=== PATIENT | male | born 1975 | race Caucasian/White ===

== ENCOUNTER 2020-05-01 06:34 | Inpatient (IN) ==
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
[~2020-05-01 06:34] MED LIST: CEFAZOLIN 2000MG 2,000 MG/15 ML SYR IV SCH; LACTATED RINGER'S 1,000 ML IV SCH
[2020-05-01] MEDS ORDERED: ATROPINE SULFATE 0.1 MG/ML 10ML SYR IV PRN (10:33)
[2020-05-01] MEDS ORDERED: HYDROmorphone INJ 1 MG/ML SYRINGE IV PRN ×2 (10:33→22:59)
[2020-05-01] MEDS ORDERED: ePHEDrine sulfate 50 MG/ML AMP IV PRN (10:33)
[2020-05-01] MEDS ORDERED: fentaNYL citrate 100 MCG/2 ML VIAL IV PRN (10:33)
[2020-05-01] MEDS ORDERED: ONDANSETRON INJ 2 MG/ML 2 ML VIAL IV PRN (10:33)
[2020-05-01] MEDS ORDERED: BUPIVACAINE/EPINEPHRINE 0.25% 1:200,000 30 ML VIAL ONE (10:36)
--- NOTE | 2020-05-01 10:36 | History & Physical Bridge Note ---
Date of Service May 01, 2020 History & Physical Bridge Note I have examined the patient, reviewed the History & Physical and in the interval since the performance of the History & Physical I have noted the following changes of clinical significance: no changes noted
[2020-05-01] MEDS ORDERED: ONDANSETRON INJ 2 MG/ML 2 ML VIAL ONE (10:42)
[2020-05-01] MEDS ORDERED: DEXAMETHASONE SOD INJ 4 MG/ML VIAL ONE (10:42)
[2020-05-01] MEDS ORDERED: SUCCINYLCHOLINE CHLORIDE 20 MG/ML 10 ML VIAL IV ONE (10:42)
[2020-05-01] MEDS ORDERED: PROPOFOL IV EMULSION 10 MG/ML 20 ML VIAL IV ONE (10:42)
[2020-05-01] MEDS ORDERED: LIDOCAINE HCL 2% 2 ML VIAL/AMP(20MG/ML) INFIL ONE (10:42)
[2020-05-01] MEDS ORDERED: GLYCOPYRROLATE 0.2 MG/ML VIAL ONE (10:42)
[2020-05-01] MEDS ORDERED: ePHEDrine sulfate 50 MG/ML AMP ONE (10:42)
[2020-05-01] MEDS ORDERED: NEOSTIGMINE METHYLSULFATE 5 MG/5 ML SYR ONE (10:42)
[2020-05-01] MEDS ORDERED: MIDAZOLAM HCL 1 MG/ML 2ML VIAL ONE (10:42)
[2020-05-01] MEDS ORDERED: PHENYLEPHRINE HCL 10 MG/ML VIAL ONE (10:42)
[2020-05-01] MEDS ORDERED: fentaNYL citrate 100 MCG/2 ML VIAL ONE (10:43)
[2020-05-01] MEDS ORDERED: SCOPOLAMINE 1.5 MG TDSY TD ONE (10:52)
[2020-05-01] MEDS ORDERED: FAMOTIDINE 20 MG in SYRINGE 3 ML IV ONE (11:30)
[2020-05-01] MEDS ORDERED: SODIUM CHLORIDE 0.9% INJ 10 ML VIAL ONE (11:34)
[2020-05-01] MEDS ORDERED: HYDROmorphone INJ 2 MG/ML SYR/VIAL ONE (11:34)
[2020-05-01] MEDS ORDERED: METOCLOPRAMIDE HCL INJ 5 MG/ML 2 ML VIAL ONE (11:39)
[2020-05-01] MEDS ORDERED: DiphenhydrAMINE HCL 50 MG/ML VIAL ONE (11:58)
[2020-05-01] MEDS ORDERED: ROCURONIUM BROMIDE 10 MG/ML 5 ML VIAL IV ONE ×6 (12:20)
[2020-05-01] MEDS ORDERED: LABETALOL HCL IV 5 MG/ML 20ML IV ONE (12:38)
[2020-05-01] MEDS ORDERED: SUGAMMADEX SODIUM 200 MG/2 ML VIAL IV ONE (14:21)
--- NOTE | 2020-05-01 14:43 | Operative Report ---
PG Post Operative Report Pre & Post Diagnosis Operation Date: 05/01/20 09:50 Pre-Op Diagnosis: Diverticulitis, Umbilical Hernia Post-Op Diagnosis: Diverticulitis, Umbilical Hernia; extensive adhesions; I identified the patient and participated in the time-out.: Yes Procedure Operation Date: 05/01/20 09:50 Actual Procedures p Open Sigmoid Colon Resection;(Not Applicable) - Matt Leigh DO s Open Umbilical Hernia Repair(Not Applicable) - Matt Leigh DO Surgeon Matt Leigh DO Manager Spring jean paul Abrams Estimated Blood Loss 20 Findings Consistent with Post-Op Diagnosis Specimens sigmoid colon Description of Procedure After informed consent was obtained the patient was taken to the operating room and placed in supine position. After successful intubation a Man catheter was placed. The patient was then placed in a low lithotomy position in yellowfin stirrups. both arms were tucked. The entire abdomen groin perineum and rectum were sterilely prepped and draped in usual fashion. I began by making an infraumbilical incision with 11 blade scalpel and carried this down through the soft tissue using cautery. The anterior rectus fascia was opened using cautery and two #0 Vicryl stay sutures were placed. Peritoneum was entered using blunt finger penetration and a finger sweep was performed. A 12 mm Mistry trocar was placed and the abdomen was insufflated to 20 mmHg. The laparoscope was inserted. We immediately encountered a fair amount of adhesions. I was able to place a right lower quadrant 12 mm port and a right mid abdominal 5 mm port. The first hour of the procedure was spent tediously taking down adhesions using blunt dissection and small amounts of harmonic scalpel. Eventually we also placed a left lower quadrant 5 mm trocar. A portion of the sigmoid colon was very tightly adhered to the anterior abdominal wall at his midline incision. 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 Despite being able to get this down laparoscopically his left retroperitoneum was very adhesed as well and I did not feel it would be safe to proceed. We therefore converted this to an open procedure. We removed all the trochars and desufflated the abdomen. I opened his previous midline incision from just above his umbilicus down to his pubic symphysis. Cautery was used to open the incision completely. A Bookwalter retractor was used throughout the rest of the case to help with exposure. Again the thickened inflamed area of colon was quite obvious. Much of his abdomen was very much adhesed because of his previous surgeries. I was able to free up the white line of Toldt using finger fractionation and small amount of harmonic scalpel. I was able to find good soft viable bowel distal to this area and created a small window in the mesentery. We transected this using a RADHA purple cartridge stapler. In similar fashion we found some good healthy bowel proximal to the area and transected it with a purple RADHA as well. A LigaSure device was used to take down the mesentery and the specimen was passed off. We were near the pelvic brim however there was also a lot of scarring of his bladder flap and I felt the risk benefit would not warrant trying to free this up to get low on the rectum. Therefore we did a handsewn end-to-end anastomosis. We used 3-0 silk in simple interrupted fashion as a posterior serosal layer. Next we removed both staple lines using a Metzenbaum scissor and used 3-0 Monocryl to do a running serosal mucosal layer. We did the anterior portion using Dorene stitches. Once we had the mucosal serosal layer completely closed we then used 3-0 silk in simple interrupted fashion to do an anterior serosal layer. The anastomosis appeared to be intact and patent. There did not appear to be excess tension. It was not ischemic. We did close the mesenteric defect using 2-0 Vicryl in simple erupted fashion as well. There was adequate hemostasis. We thoroughly irrigated the entire abdomen. We were able to free up enough omentum and laid this over the anastomosis itself. A 10 flat Octavio-Griffith drain was also brought in through 1 of the trocar sites and placed into the lower half of the abdomen. It was secured to the skin using 2-0 silk. We then freed up the umbilical hernia and excised the sac. Next we closed the fascia using 0-looped PDS starting at either pole and running them and securing them in the midline. We incorporated the umbilical hernia defect with this. I then reattached the umbilicus using 0 Vicryl to the fascia. Soft tissue irrigation was performed and the skin was closed using skin taylor. The other incisions were closed using skin taylor as well. A silver dressing gauze and tape were applied. The patient was awakened, extubated and transferred to recovery in stable condition. My physician retail sales assistant was present through the entire case. He was instrumental in helping with assistance from running the camera to exposing anatomy as well as assisting with the anastomosis wound closure and dressing placement. I attest to the content of the Intraoperative Record and any orders documented therein. Any exceptions are noted below.
--- NOTE | 2020-05-01 15:04 | Anesthesiology Progress Note ---
Date of Service May 01, 2020 Anesthesia Post Procedure Vital Signs Vital Signs: Temp Pulse Resp BP Pulse Ox 05/01/20 07:00 36.7 C 78 18 120/86 99 Transfer of Care Handoff Completed per policy Notes Mental Status: alert / awake / arousable and participated in evaluation Patient Amnestic to Procedure: Yes Nausea / Vomiting: adequately controlled Pain: adequately controlled Airway Patency, RR, SpO2: stable & adequate BP & HR: stable & adequate Hydration State: stable & adequate Anesthetic Complications: no major complications apparent and Pt Satisfied with anesthetic care
[2020-05-01] MEDS ORDERED: NALOXONE HCL 0.4 MG/1 ML VIAL/CARP IV PRN (16:34)
[2020-05-01] MEDS ORDERED: ACETAMINOPHEN 1,000 MG/100 ML VIAL IV PRN (16:34)
[2020-05-01] MEDS ORDERED: HYDROmorphone PCA 30 MG/30 ML IV PRN (16:34)
[2020-05-01] MEDS: LACTATED RINGER'S 1,000 ML IV SCH ×2 (16:38→23:04)
[2020-05-01] MEDS ORDERED: ALBUTEROL HFA 8 GM INHALER INH PRN (16:49)
[2020-05-01] MEDS: KETOROLAC 30 MG/ML VIAL IV PRN (19:01)
[2020-05-01] MEDS: CEFAZOLIN 2000MG 2,000 MG/15 ML SYR IV SCH (19:01)
[2020-05-02] MEDS: MONTELUKAST SODIUM 10 MG TABLET PO SCH ×2 (01:17→21:15)
[2020-05-02] MEDS: HYDROmorphone INJ 0.5 MG/0.5 ML SYR IV PRN ×2 (01:26→06:29)
[2020-05-02] MEDS: CEFAZOLIN 2000MG 2,000 MG/15 ML SYR IV SCH ×2 (02:48→11:34)
[2020-05-02 05:41] LABS: Hematocrit (blood only) 39.2 % (42-52); Immature Granulocytes # (auto) 0.02 K/uL (0.00-0.02); Immature Granulocytes % (auto) 0.2 %; Lymphocytes # (auto) 1.14 K/uL (1.2-3.4); Lymphocytes % (auto) 11.3 %; Mean Corpuscular Hgb Conc 33.2 g/dL (32-36); Mean Corpuscular Volume 90.3 fL (80-100); Mean Platelet Volume 8.7 fL (7.4-10.4); Monocytes # (auto) 0.87 K/uL (0.11-0.59); Monocytes % (auto) 8.6 %; Neutrophils # (auto) 8.08 K/uL (1.4-6.5); Neutrophils % (auto) 79.9 %; Platelet Count 271 K/uL (130-400); RDW Coefficient of Variation 13.3 % (11.5-14.5); RDW Standard Deviation 44.3 fL (36.4-46.3); Red Blood Count 4.34 M/uL (4.7-6.1); White Blood Count 10.11 K/uL (4.8-10.8)
[2020-05-02 06:05] LABS: BUN Creatinine Ratio 20.7 (10-20); Calcium 8.1 mg/dl (8.5-10.1); Creatinine Clr Calc Pharmacy 118.2 ml/min; Est GFR (African American) 124.8; Est GFR (Non-African American) 107.7
[2020-05-02] MEDS: LACTATED RINGER'S 1,000 ML IV SCH (06:31)
[2020-05-02] MEDS: SODIUM CHLORIDE 0.9% 1000ML 1,000 ML IV SCH ×2 (06:37→17:37)
--- NOTE | 2020-05-02 07:49 | Surgery Progress Note ---
Date of Service May 02, 2020 Assessment & Plan (1) Diverticular disease of colon: pod 1 doing quite well so far. will d/c swan at pt request OOB today pain control [facility] Admission and Anticipated Discharge Date Admission Date: May 01, 2020 Subjective pt seen. looks surprisingly well for the scope of his surgery. pain controlled with IV dilaudid. Physical Exam Physical Exam: alert. nad abd: soft. dressings c/d/I BETH small amount of serous. Results & Data ([facility]) Vital Signs (Past 12 Hours) Vital Signs Temp Pulse Resp BP BP Pulse Ox 05/02/20 04:12 36.8 C 94 H 16 102/63 94 05/01/20 22:47 36.9 C 112 H 16 103/68 96 05/01/20 20:31 36.4 C L 115 H 17 114/71 94 PG Care Time/CCT Total # of Minutes Spent Total Time Spent with Patient: Total time spent is greater than 50% in coordination of care (as documented) at patient's floor/unit and/or counseling patient: Coding Level of Care Code None Diagnoses Diverticular disease of colon K57.30
[2020-05-02] MEDS: D5W AND 1/2NSS + 20MEQ KCL 20 MEQ/1,000 ML BAG IV SCH ×2 (08:55→17:37)
[2020-05-02] MEDS: ENOXAPARIN INJ 40 MG/0.4 ML SYR SQ SCH ×2 (09:01→21:15)
[2020-05-02] MEDS ORDERED: NURSING DECISION MEDICATION ONE (17:23)
[2020-05-02] MEDS ORDERED: COUGH DROP (SUGAR FREE) LOZ 24 LOZ/1 BOX BUCCAL PRN (17:28)
[2020-05-03] MEDS: D5W AND 1/2NSS + 20MEQ KCL 20 MEQ/1,000 ML BAG IV SCH ×4 (00:06→20:46)
[2020-05-03] MEDS: ONDANSETRON INJ 2 MG/ML 2 ML VIAL IV PRN ×2 (04:21→10:30)
[2020-05-03] MEDS: PANTOprazole 40 MG in SYRINGE 0 ML IV SCH (04:42)
[2020-05-03 06:27] LABS: Basophils # (auto) 0.03 K/uL (0-0.2); Basophils % (auto) 0.4 %; Eosinophils # (auto) 0.13 K/uL (0-0.5); Eosinophils % (auto) 1.5 %; Hematocrit (blood only) 42.1 % (42-52); Hemoglobin 13.6 g/dL (14.0-18.0); Immature Granulocytes # (auto) 0.03 K/uL (0.00-0.02); Immature Granulocytes % (auto) 0.4 %; Lymphocytes # (auto) 1.48 K/uL (1.2-3.4); Lymphocytes % (auto) 17.6 %; Mean Corpuscular Hemoglobin 29.6 pg (25-34); Mean Corpuscular Hgb Conc 32.3 g/dL (32-36); Mean Corpuscular Volume 91.5 fL (80-100); Mean Platelet Volume 8.7 fL (7.4-10.4); Monocytes # (auto) 1.11 K/uL (0.11-0.59); Monocytes % (auto) 13.2 %; Neutrophils # (auto) 5.62 K/uL (1.4-6.5); Neutrophils % (auto) 66.9 %; Platelet Count 251 K/uL (130-400); RDW Coefficient of Variation 13.6 % (11.5-14.5); RDW Standard Deviation 45.9 fL (36.4-46.3)
[2020-05-03 06:45] LABS: BUN Creatinine Ratio 19.3 (10-20); Calcium 8.3 mg/dl (8.5-10.1); Creatinine Clr Calc Pharmacy 143.7 ml/min; Est GFR (African American) 135.2; Est GFR (Non-African American) 116.7; Potassium 3.8 mmol/L (3.5-5.1)
[2020-05-03] MEDS: ENOXAPARIN INJ 40 MG/0.4 ML SYR SQ SCH ×2 (08:12→20:57)
--- NOTE | 2020-05-03 10:28 | Surgery Progress Note ---
Date of Service May 03, 2020 Assessment & Plan (1) Diverticular disease of colon: Postoperative day #2 status post laparoscopic/open sigmoid colectomy Peristalsis is slowly returning audibly We will start sips of clear liquids We will also add Maalox for his indigestion and continue Protonix Encouraged ambulation White blood cell count is normal and H&H is stable Admission and Anticipated Discharge Date Admission Date: May 01, 2020 Subjective Postoperative day #2 status post laparoscopic/open sigmoid colectomy Sitting in chair appears comfortable Has not passed flatus or had bowel movement as yet Complaining of heartburn, Protonix was started but continues to have heartburn Had some mild nausea this morning but thinks it was related to the reflux and heartburn No [facility] and 100 cc out over the last shift all serosanguineous Physical Exam Gastrointestinal (Abdomen): Inspection/Auscultation: + abdomen distended (Mild) and + abdominal surgical incision (Clean, dry and intact) Percussion/Palpation: abdomen soft Bowel sounds are present and of normal pitch Results & Data ([facility]) Vital Signs (Past 12 Hours) Vital Signs Temp Pulse Resp BP Pulse Ox 05/03/20 07:16 36.8 C 95 H 18 117/74 93 05/03/20 03:25 36.3 C L 82 14 109/76 92 05/02/20 23:33 36.6 C 100 H 18 138/92 96 Laboratory Results 05/03/20 05/03/20 Range/Units 06:02 06:02 WBC 8.40 (4.8-10.8) K/uL RBC 4.60 L (4.7-6.1) M/uL Hgb 13.6 L (14.0-18.0) g/dL Hct 42.1 (42-52) % MCV 91.5 (80-100) fL MCH 29.6 (25-34) pg MCHC 32.3 (32-36) g/dL RDW Std Deviation 45.9 (36.4-46.3) fL RDW Coeff of Maya 13.6 (11.5-14.5) % Plt Count 251 (130-400) K/uL MPV 8.7 (7.4-10.4) fL Immature Gran % (Auto) 0.4 % Neut % (Auto) 66.9 % Lymph % (Auto) 17.6 % Garrett % (Auto) 13.2 % Eos % (Auto) 1.5 % Baso % (Auto) 0.4 % Neut # (Auto) 5.62 (1.4-6.5) K/uL Lymph # (Auto) 1.48 (1.2-3.4) K/uL Garrett # (Auto) 1.11 H (0.11-0.59) K/uL Eos # (Auto) 0.13 (0-0.5) K/uL Baso # (Auto) 0.03 (0-0.2) K/uL Immature Gran # (Auto) 0.03 H (0.00-0.02) K/uL Sodium 136 (136-145) mmol/L Potassium 3.8 (3.5-5.1) mmol/L Chloride 104 (98-107) mmol/L Carbon Dioxide 26 (21-32) mmol/L Anion Gap 6.0 (3-11) BUN 13 (7-18) mg/dl Creatinine 0.65 (0.6-1.4) mg/dl Est Cr Clr Drug Dosing 143.7 ml/min Est GFR ( Amer) 135.2 Est GFR (Non-Af Amer) 116.7 BUN/Creatinine Ratio 19.3 (10-20) Glucose 135 H (70-99) mg/dl Calcium 8.3 L (8.5-10.1) mg/dl
[2020-05-03] MEDS ORDERED: ALUMINUM/MAGNESIUM SUSP 30 ML UDC PO PRN (15:33)
[2020-05-03] MEDS: KETOROLAC 30 MG/ML VIAL IV PRN (19:32)
[2020-05-03] MEDS ORDERED: OXYCODONE/ACETAMINOPHEN 5mg/325mg TAB PO STA (20:06)
[2020-05-03] MEDS: MONTELUKAST SODIUM 10 MG TABLET PO SCH (20:58)
[2020-05-04] MEDS: D5W AND 1/2NSS + 20MEQ KCL 20 MEQ/1,000 ML BAG IV SCH ×3 (03:31→16:42)
[2020-05-04] MEDS: KETOROLAC 30 MG/ML VIAL IV PRN ×3 (05:22→21:02)
[2020-05-04 06:29] LABS: Basophils # (auto) 0.01 K/uL (0-0.2); Basophils % (auto) 0.1 %; Eosinophils # (auto) 0.24 K/uL (0-0.5); Eosinophils % (auto) 3.3 %; Hematocrit (blood only) 41.9 % (42-52); Hemoglobin 14.3 g/dL (14.0-18.0); Immature Granulocytes # (auto) 0.02 K/uL (0.00-0.02); Immature Granulocytes % (auto) 0.3 %; Lymphocytes # (auto) 1.66 K/uL (1.2-3.4); Lymphocytes % (auto) 22.7 %; Mean Corpuscular Hemoglobin 31.2 pg (25-34); Mean Corpuscular Hgb Conc 34.1 g/dL (32-36); Mean Corpuscular Volume 91.5 fL (80-100); Mean Platelet Volume 8.5 fL (7.4-10.4); Monocytes # (auto) 0.98 K/uL (0.11-0.59); Monocytes % (auto) 13.4 %; Neutrophils % (auto) 60.2 %; Platelet Count 224 K/uL (130-400); RDW Coefficient of Variation 13.5 % (11.5-14.5); RDW Standard Deviation 44.8 fL (36.4-46.3); Red Blood Count 4.58 M/uL (4.7-6.1); White Blood Count 7.31 K/uL (4.8-10.8)
[2020-05-04 06:58] LABS: BUN Creatinine Ratio 12.3 (10-20); Calcium 8.7 mg/dl (8.5-10.1); Creatinine Clr Calc Pharmacy 137.4 ml/min; Est GFR (African American) 132.7; Est GFR (Non-African American) 114.5; Potassium 4.3 mmol/L (3.5-5.1)
[2020-05-04] MEDS: ENOXAPARIN INJ 40 MG/0.4 ML SYR SQ SCH ×2 (07:14→19:51)
[2020-05-04] MEDS: PANTOprazole 40 MG in SYRINGE 0 ML IV SCH (07:15)
--- NOTE | 2020-05-04 10:03 | Surgery Progress Note ---
Date of Service May 04, 2020 Assessment & Plan (1) Diverticular disease of colon: Postoperative day #3 status post laparoscopic/open sigmoid colectomy Peristalsis has returned Tolerated clear liquid diet Advance to full liquid diet Encourage ambulation Continue analgesia Indigestion improved Admission and Anticipated Discharge Date Admission Date: May 01, 2020 Subjective Postoperative day #3 status post laparoscopic-assisted/open sigmoid colectomy Passing flatus and had bowel movements this morning Denies nausea and vomiting No indigestion or heartburn this morning Tolerated clear liquid diet Ambulating Having less pain BETH had 290 cc out yesterday and 150 cc out to this point today, all serosanguineous Physical Exam Gastrointestinal (Abdomen): Inspection/Auscultation: normal bowel sounds and + abdominal surgical incision (Clean, dry and intact); abdomen not distended Percussion/Palpation: + abdomen tender (Incisional only) and abdomen soft Results & Data ([facility]) Vital Signs (Past 12 Hours) Vital Signs Temp Pulse Resp BP BP Pulse Ox 05/04/20 07:08 36.6 C 101 H 18 110/76 96 05/04/20 04:00 36.4 C L 74 18 125/76 96 05/04/20 00:07 36.8 C 88 16 117/75 95
[2020-05-04] MEDS: SODIUM CHLORIDE 0.9% 1000ML 1,000 ML IV SCH ×2 (16:54→16:55)
[2020-05-04] MEDS: MONTELUKAST SODIUM 10 MG TABLET PO SCH (19:51)
[2020-05-05] MEDS: D5W AND 1/2NSS + 20MEQ KCL 20 MEQ/1,000 ML BAG IV SCH ×2 (00:22→07:35)
[2020-05-05] MEDS: KETOROLAC 30 MG/ML VIAL IV PRN (03:42)
[2020-05-05 06:14] LABS: Basophils # (auto) 0.03 K/uL (0-0.2); Basophils % (auto) 0.5 %; Eosinophils # (auto) 0.26 K/uL (0-0.5); Eosinophils % (auto) 4.2 %; Hematocrit (blood only) 35.5 % (42-52); Hemoglobin 12.4 g/dL (14.0-18.0); Immature Granulocytes # (auto) 0.02 K/uL (0.00-0.02); Immature Granulocytes % (auto) 0.3 %; Lymphocytes # (auto) 1.83 K/uL (1.2-3.4); Lymphocytes % (auto) 29.8 %; Mean Corpuscular Hgb Conc 34.9 g/dL (32-36); Mean Corpuscular Volume 91.7 fL (80-100); Mean Platelet Volume 8.7 fL (7.4-10.4); Monocytes # (auto) 0.82 K/uL (0.11-0.59); Monocytes % (auto) 13.3 %; Neutrophils # (auto) 3.19 K/uL (1.4-6.5); Neutrophils % (auto) 51.9 %; Platelet Count 204 K/uL (130-400); RDW Coefficient of Variation 13.5 % (11.5-14.5); RDW Standard Deviation 45.3 fL (36.4-46.3); Red Blood Count 3.87 M/uL (4.7-6.1); White Blood Count 6.15 K/uL (4.8-10.8)
[2020-05-05 06:51] LABS: BUN Creatinine Ratio 10.3 (10-20); Calcium 8.1 mg/dl (8.5-10.1); Creatinine Clr Calc Pharmacy 179.6 ml/min; Est GFR (African American) 148.2; Est GFR (Non-African American) 127.9; Potassium 4.2 mmol/L (3.5-5.1)
[2020-05-05] MEDS: ENOXAPARIN INJ 40 MG/0.4 ML SYR SQ SCH ×2 (07:35→20:12)
[2020-05-05] MEDS: PANTOprazole 40 MG in SYRINGE 0 ML IV SCH (07:36)
--- NOTE | 2020-05-05 09:19 | Surgery Progress Note ---
Date of Service May 05, 2020 Assessment & Plan (1) Diverticular disease of colon: pod 4 doing well advance to soft diet d/c POKER DEALER increase activity. possible d/c tomorrow. Admission and Anticipated Discharge Date Admission Date: May 01, 2020 Subjective doing well. +flatus and small bm. hungry. magaly full liquids without issue. Physical Exam Physical Exam: alert. nad abd: soft. expected tenderness. BETH all serous. Results & Data ([facility]) Vital Signs (Past 12 Hours) Vital Signs Temp Pulse Resp BP Pulse Ox 05/05/20 06:22 36.8 C 74 19 120/71 96 05/05/20 03:23 36.8 C 81 19 134/83 99 05/05/20 00:14 36.8 C 85 19 125/84 97 PG Care Time/CCT Total # of Minutes Spent Total Time Spent with Patient: Total time spent is greater than 50% in coordination of care (as documented) at patient's floor/unit and/or counseling patient: Coding Level of Care Code None Diagnoses Diverticular disease of colon K57.30
[2020-05-05] MEDS: HYDROCODONE/ACETAMOPHEN 5/325MG TAB PO PRN ×4 (09:46→23:04)
[2020-05-05] MEDS: MONTELUKAST SODIUM 10 MG TABLET PO SCH (20:11)
[2020-05-06] MEDS: KETOROLAC 30 MG/ML VIAL IV PRN (00:10)
[2020-05-06] MEDS: HYDROCODONE/ACETAMOPHEN 5/325MG TAB PO PRN ×4 (05:08→23:27)
[2020-05-06] MEDS: ENOXAPARIN INJ 40 MG/0.4 ML SYR SQ SCH ×2 (08:06→20:48)
[2020-05-06] MEDS: PANTOprazole 40 MG in SYRINGE 0 ML IV SCH (08:07)
--- NOTE | 2020-05-06 08:08 | Surgery Progress Note ---
Date of Service May 06, 2020 Assessment & Plan (1) Diverticular disease of colon: POD 5 lap assisted sigmoid colectomy, extensive DEB try ibuprofen + Mcneal with dilaudid as needed may need another day for pain control d/c drain prior to discharge as above. did not have a great night. still having some pain. no real bm yet. BETH serous. will keep one more day. hopeful d/c tomorrow. Admission and Anticipated Discharge Date Admission Date: May 01, 2020 Subjective pain, required Toradol last night in addition to Mcneal, small BMs, regular diet Physical Exam Gastrointestinal (Abdomen): Inspection/Auscultation: + abdominal wall ecchymosis (lower incision) and + abdominal surgical incision (some bleeding from upper ); abdomen not distended Percussion/Palpation: abdomen soft Results & Data ([facility]) Vital Signs (Past 12 Hours) Vital Signs Temp Pulse Resp BP Pulse Ox 05/06/20 07:39 36.8 C 82 18 111/68 94 05/06/20 00:06 37.3 C 83 16 114/71 96 PG Care Time/CCT Total # of Minutes Spent Total Time Spent with Patient: Total time spent is greater than 50% in coordination of care (as documented) at patient's floor/unit and/or counseling patient: Coding Level of Care Code None Diagnoses Diverticular disease of colon K57.30
[2020-05-06] MEDS ORDERED: HYDROmorphone INJ 0.5 MG/0.5 ML SYR IV PRN (08:25)
[2020-05-06] MEDS: IBUPROFEN 600 MG TAB PO PRN ×2 (15:52→22:20)
[2020-05-06] MEDS: MONTELUKAST SODIUM 10 MG TABLET PO SCH (20:48)
[2020-05-07] MEDS: HYDROCODONE/ACETAMOPHEN 5/325MG TAB PO PRN ×2 (05:21→11:26)
--- NOTE | 2020-05-07 08:21 | Surgery Progress Note ---
Date of Service May 07, 2020 Assessment & Plan (1) Diverticular disease of colon: POD#6 lap assisted sigmoid colectomy and extensive DEB Patient reports pain is more manageable today Tolerating a low fiber diet Ambulating without issues He is having + bowel function BETH serosang; incisions c/d/i Will d/c BETH drain and plan for discharge today as above. pt seen. doing well. multiple loose BM's overnight. magaly reg diet. pain improved ok for d/c. instructions given. f/u in 1 week. Admission and Anticipated Discharge Date Admission Date: May 01, 2020 Subjective Patient states he is feeling well. Says his pain is under better control. Woke up with some sweats last night, but no fevers and feels fine this morning. He is tolerating a diet without nausea/vomiting. He continues to pass flatus and had a BM this AM. Physical Exam Physical Exam: awake/alert, sitting up in chair Respiratory: normal respiratory effort Gastrointestinal (Abdomen): Inspection/Auscultation: + abdominal surgical incision (c/d/i with surgical taylor in place, no sign of infection) and + abdominal surgical drain present (BETH with serous drainage) Percussion/Palpation: + abdomen tender (some ttp around drain) and abdomen soft Results & Data [facility]) Vital Signs (Past 12 Hours) Vital Signs Temp Pulse Resp BP BP Pulse Ox 05/07/20 08:07 36.6 C 82 16 128/85 94 05/06/20 23:31 37.1 C 76 14 128/82 96 PG Care Time/CCT Total # of Minutes Spent Total Time Spent with Patient: Total time spent is greater than 50% in coordination of care (as documented) at patient's floor/unit and/or counseling patient: Coding Level of Care Code None Diagnoses Diverticular disease of colon K57.30
[2020-05-07] MEDS: PANTOprazole 40 MG in SYRINGE 0 ML IV SCH (09:56)
[2020-05-07] MEDS: ENOXAPARIN INJ 40 MG/0.4 ML SYR SQ SCH (09:56)
--- NOTE | 2020-05-07 10:23 | Discharge Summary ---
Date of Service May 07, 2020 Principal Diagnosis 1. Diverticulitis 2. Umbilical hernia Discharge Exam Constitutional WD/WN, vitals as above Gastrointestinal (Abdomen) Inspection/Auscultation: + abdominal surgical incision (clean, dry) Percussion/Palpation: abdomen soft; abdomen nontender Discharge Data Allergies Allergy/AdvReac Type Severity Reaction Status Date / Time No Known Allergies Allergy Verified 05/01/20 06:57 Procedures Performed Operation Date: 05/01/20 09:50 Actual Procedures s Open Umbilical Hernia Repair(Not Applicable) - Matt Leigh DO p Open Sigmoid Colon Resection;(Not Applicable) - Matt Leigh DO Hospital Course (1) Diverticular disease of colon: 45 y/o male with recurrent diverticulitis was taken to the operating room for laparoscopic sigmoid colectomy. He was transferred the surgical floor. Lovenox was used for DVT prophylaxis. He was started on clears on POD 2, and was able to tolerate an advancing diet beginning day 3. His bowels were moving by day 4. He continued to require IV analgesics but was weaning from these on day 5. On day 6 he was stable for discharge home. Total Time Total Time Spent Total Time Spent (In Minutes): 10 Discharge Plan Discharge Items Patient Disposition: Home - Self-Care Reason For Visit: Diverticulitis, Umbilical Hernia Discharge Diagnosis: resection of sigmoid colon Activity: Per Instructions section Lifting: No more than 10 pounds Bathing Comment: may shower; no soaking in tubs/pools Exercise/Sports: Wait until after follow-up appointment Driving/Machine Use: do not resume driving until cleared by Dr. Leigh Non-emergency contact: Surgeon Call non-emergency contact if: you have any medication questions, your symptoms worsen, your pain is not controlled, your pain is worsening, your pain is unusual for you, your pain is concerning for you, you have a fever, your temperature is above 101.5, your wound has increased redness, your wound has increased drainage and your wound pain has increased Follow-up/Referrals: Matt Leigh DO [Surgeon] - 05/16/20 10:00 am (Please call to schedule follow up in clinic within 1-2 weeks) Qian Hart CRNP [Primary Care Provider] - 05/20/20 11:00 am Diet: Low Fiber Addtl Attending Provider Instructions: You can take ibuprofen 600 mg every 6 hours as needed for pain in between Percocet doses Your surgical taylor will be removed when you follow up in clinic You may resume your Xarelto this evening, 05/07/20 Pending Studies at Discharge: Yes Studies:: surgical pathology Stand-Alone Forms: My [facility] Medications and DC Order Prescriptions: New oxycodone-acetaminophen [Percocet] 5-325 mg tablet 1 tab PO Q6H PRN (Reason: pain) Qty: 40 RF: 0 Continued Xarelto 20 mg tablet 20 mg PO PM RF: 0 montelukast [Singulair] 10 mg tablet 10 mg PO PM RF: 0 albuterol sulfate 90 mcg/actuation Aerosol Powdr Breath Activated 1 inh INHALATION QID PRN (Reason: Allergy Symptoms) RF: 0 ibuprofen 400 mg Tablet 400 mg PO Q6H PRN (Reason: Pain) RF: 0 Discharge Orders: Discharge Order (Routine); Ordered 05/07/20 Ordered By: Romelia Wolf Admission Data Admit Date/Time: 05/01/20 15:06 Attending Provider: Matt Leigh Admit Provider: Matt Leigh Primary Care Provider: Qian Hart Other Providers: Endy Abrams Jr Other Interventions: Discharge Summary Assessment (RN) Last Done: 05/07/20 08:46 Coding Level of Care Code D/C Day Management <30 mins Diagnoses Diverticular disease of colon K57.30
== END 2020-05-07 12:38 | disposition home or self-care (01) | DRG 331 ==
LOC: ASU 06:34 → 3N 15:06